=== PATIENT | male | born 1985 | race Caucasian/White ===

== ENCOUNTER → 2018-09-20 | Outpatient (CLI) | payer MEDICAID ==
[~2018-09-20] MED LIST: ATOR20TA9 PO; CLIN300C8 PO; INSU100C5 SQ; INSU100V8 SQ; NPH,100V SQ-INSULIN; OMNIPAQUE 350 MG/ML, 100ML BOTTLE ONE
== END | disposition home or self-care (01) ==
LOC: RAD 13:21
PROVIDERS: ATTEND Physician Assistant Surgical
DX: K86.89 Other specified diseases of pancreas (principal); K59.00 Constipation, unspecified
CPT/HCPCS: 36415; 74178; 82565; Q9967